=== PATIENT | female | born 1935 | race Caucasian/White ===

== ENCOUNTER → 2017-01-18 | Outpatient (CLI) | payer OTHER ==
[~2017-01-18] MED LIST: ASPEC325 PO; ATEN50TA8 PO; CALCTAB7 PO; CLOP1TAB15 PO; CZR25 PO; RXC5 PO; SIMV20TA2 PO; [UNRECOGNIZED DRUG - OTHER]
[2017-01-18 17:33] LABS: HEMATOCRIT 42.1 % (37-47); MEAN CELL VOLUME 93.6 fL (80-100); MEAN CORPUSCULAR HEMOGLOBIN 30.2 pg (25-34); MEAN CORPUSCULAR HGB CONC 32.3 g/dl (32-36); MEAN PLATELET VOLUME 9.9 fL (7.4-10.4); PLATELET COUNT 300 K/uL (130-400); WHITE BLOOD COUNT 6.21 K/uL (4.8-10.8)
[2017-01-18 20:12] LABS: BLOOD UREA NITROGEN 11 mg/dl (7-18); BUN/CREATININE RATIO 11.9 (10-20); CALCIUM 9.4 mg/dl (8.5-10.1); CARBON DIOXIDE 27 mmol/L (21-32); CHLORIDE 101 mmol/L (98-107); CREATININE 0.96 mg/dl (0.60-1.20); GLUCOSE 88 mg/dl (70-99); POTASSIUM 4.6 mmol/L (3.5-5.1); SODIUM 137 mmol/L (136-145); TRIGLYCERIDES 178 mg/dl (0-150); VERY LOW DENSITY LIPOPROT CALC 36 mg/dl
[2017-01-18 20:24] LABS: ALB/GLOB RATIO 1.1 (0.9-2); ALKALINE PHOSPHATASE 85 U/L (45-117); ALT/SGPT 21 U/L (12-78); AST/SGOT 19 U/L (15-37); CHOLESTEROL 132 mg/dl (0-200); CHOLESTEROL/HDL RATIO 2.4; HDL CHOLESTEROL 56 mg/dl; LDL CHOLESTEROL CALCULATED 40 mg/dl
== END | disposition home or self-care (01) ==
LOC: C.LABBFT 14:38
PROVIDERS: ATTEND Internal Medicine
DX: I10 Essential (primary) hypertension (principal); E78.5 Hyperlipidemia, unspecified

== ENCOUNTER 2017-09-11 16:21 | Emergency (ER) | payer OTHER ==
[2017-09-11] VITALS (12 sets, daily range): BP systolic 174–224; BP diastolic 69–130; PULSE 68–94; TEMP 36.6; O2SAT 92–100; Ht 154.9 cm; Wt 70.3 kg
[~2017-09-11] VITALS: Ht 154.9 cm; Wt 70.3 kg
[2017-09-11] MEDS ORDERED: IBUPROFEN 200 MG TAB PO STA (16:43)
--- NOTE | 2017-09-11 17:42 | DIAGNOSTIC IMAGING REPORT ---
R HUMERUS MIN 2 VIEWS ROUTINE CLINICAL HISTORY: Fall. Right upper arm pain. COMPARISON: None FINDINGS: There is an anterior right shoulder dislocation. There is a possible Hill-Sachs. No additional fractures are identified. IMPRESSION: 1. Anterior right shoulder dislocation with possible Hill-Sachs deformity. 2. No additional fractures. Electronically signed by: Francis Ho M.D. 09/11/2017 5:41 PM Dictated Date/Time: 09/11/2017 5:34 PM
--- NOTE | 2017-09-11 17:44 | DIAGNOSTIC IMAGING REPORT ---
CERVICAL SPINE 5 VIEWS CLINICAL HISTORY: Fall with right-sided neck pain. FINDINGS: AP, crosstable lateral, bilateral oblique, and odontoid views of the cervical spine are obtained. No prior studies are available for comparison at the time of dictation. The skeletal structures are osteopenic. There is no radiographic evidence of fracture or subluxation. Vertebral body height and alignment are maintained throughout the cervical spine. C6 and C7 are only well-visualized on the oblique views, and are not seen on the lateral projections. The odontoid process and lateral masses appear intact on the open-mouth view. The atlantodental articulation appears maintained noting productive degenerative change. The spinolaminar line is preserved. The spinous processes are intact as visualized. Anterior osteophytes are seen throughout. Advanced disc space narrowing is seen at C4-C5 and C5-C6. C6-C7 is not well assessed. Moderate disc space narrowing seen at C3-C4. Posterior disc osteophyte complexes at several levels likely contribute to multilevel acquired compromise of the central canal. Multilevel foraminal stenosis is observed on the oblique views. The prevertebral soft tissues are normal in appearance. Dense atherosclerotic calcification is seen in the carotid bulbs. Midline sternotomy wires are noted. The partially imaged apical lung parenchyma appears clear. IMPRESSION: 1. There is no radiographic evidence of fracture or subluxation involving the cervical spine. Note that C6 and C7 are suboptimally assessed. 2. Osteopenia and spondylotic change as above. Electronically signed by: Matheus Magana M.D. 09/11/2017 5:43 PM Dictated Date/Time: 09/11/2017 5:35 PM
--- NOTE | 2017-09-11 17:46 | DIAGNOSTIC IMAGING REPORT ---
R RIBS UNILATERAL WITH PA CHEST CLINICAL HISTORY: Right rib pain following fall. COMPARISON STUDY: Chest radiograph September 16, 2014. FINDINGS: Note is made of an anterior right shoulder dislocation. There is an equivocal nondisplaced fracture of the anterolateral right fourth rib. No additional fractures are identified. There are median sternotomy wires and clips from bypass grafting. Moderate cardiomegaly is noted without evidence for edema. Hazy opacity along left heart likely reflects epicardial fat pad or atelectasis. No pneumothorax or pleural effusion is present. IMPRESSION: 1. Anterior right shoulder dislocation. 2. Equivocal nondisplaced fracture of the anterolateral right fourth rib. No pneumothorax. Electronically signed by: Francis Ho M.D. 09/11/2017 5:44 PM Dictated Date/Time: 09/11/2017 5:41 PM
--- NOTE | 2017-09-11 17:48 | EMERGENCY ROOM VISIT NOTE ---
ED Visit Note First contact with patient: 16:30 I have seen and examined this patient with Spencer Aleman and generally agree with the treatment plan as discussed. Procedural Sedation Indication Shoulder dislocation. Total time: 20 minutes. Written consent was obtained after the risks and benefits were explained to the pt and daughter, including, but not limited to aspiration, allergic reaction, breathing difficulties, cardiac complications, vomiting, pain, event recall, bleeding, and/or infection. Pre-sedation examination and paperwork completed. The patient was on 100% oxygen via NRB prior to the procedure. Continous end tidal CO2 monitoring, pulse oximetry, and cardiac monitoring were utilized. Suction, airway equipment, medications, respiratory equipment, and appropriate personnel were prepared prior to the initiation of the procedure. A time out was taken. Sedation was achieved utilizing 35 mg of ketamine and propofol. After I observed the patient had reached the appropriate level of sedation the main procedure was performed without complication. Sedation was discontinued and the monitoring continued. The patient recovered quickly from the effects of the medication without complication or adverse event. Current/Historical Medications Scheduled Aspirin (Aspirin), 325 MG PO DAILY Atenolol (Tenormin), 25 MG PO DAILY Clopidogrel (Plavix), 75 MG PO DAILY Losartan Potassium (Cozaar), 50 MG PO DAILY Simvastatin (Zocor), 20 MG PO HS Scheduled PRN Ibuprofen Tab (Advil), 200 MG PO UD PRN for Pain Naproxen (Aleve), 220 MG PO UD PRN for Pain Allergies Coded Allergies: Sulfa Antibiotics (Verified Allergy, Unknown, unknown, 09/11/17) Vital Signs Date Time Temp Pulse Resp B/P (MAP) Pulse Ox O2 Delivery O2 Flow Rate FiO2 09/11/17 18:40 81 14 224/94 99 Nasal Cannula 4.0 09/11/17 18:35 87 16 201/97 98 Nasal Cannula 4.0 09/11/17 18:30 88 10 221/93 93 Nasal Cannula 8.0 09/11/17 18:29 94 12 219/123 95 Nasal Cannula 8.0 09/11/17 18:26 85 10 213/130 99 Nasal Cannula 4.0 09/11/17 18:24 74 14 100 Nasal Cannula 4.0 09/11/17 18:16 76 16 213/69 97 Room Air 09/11/17 18:14 97 Room Air 09/11/17 18:14 98 Nasal Cannula 4.0 09/11/17 18:10 75 09/11/17 17:34 72 16 199/70 94 Room Air 09/11/17 16:25 36.9 66 18 163/62 96 Room Air Medications Administered Medications (Trade) Dose Ordered Sig/Lolita Route Start Time Stop Time Status Last Admin Dose Admin Ibuprofen (Advil Tab) 400 mg NOW STAT PO 09/11/17 16:43 09/11/17 16:46 DC 09/11/17 16:54 400 MG Ondansetron HCl (Zofran Inj) 4 mg NOW STAT IV 09/11/17 18:07 09/11/17 18:10 DC 09/11/17 18:32 4 MG Sodium Chloride 500 ml @ 999 mls/hr Q31M STAT IV 09/11/17 18:07 09/11/17 18:37 DC 09/11/17 18:20 999 MLS/HR Ketamine HCl (Ketalar Steri-Vial Inj) 35 mg NOW STAT IV 09/11/17 18:07 09/11/17 18:10 DC 09/11/17 18:24 35 MG Propofol (Diprivan Iv Emulsion 20ml Vial) 35 mg NOW STAT IV 09/11/17 18:07 09/11/17 18:10 DC 09/11/17 18:25 35 MG Departure Information Referrals Enmanuel Yao M.D. (PCP) Patient Instructions My [facility]
[2017-09-11] MEDS ORDERED: PROPOFOL IV EMULSION 10 MG/ML 20 ML VIAL IV STA (18:07)
[2017-09-11] MEDS ORDERED: KETAMINE HCL INJ 50 MG/ML 10 ML VIAL IV STA (18:07)
[2017-09-11] MEDS ORDERED: SODIUM CHLORIDE 0.9% 500ML 500 ML IV STA (18:07)
[2017-09-11] MEDS ORDERED: ONDANSETRON INJ 2 MG/ML 2 ML VIAL IV STA (18:07)
[2017-09-11] MEDS ORDERED: NALOXONE HCL 0.4 MG/1 ML VIAL/CARP ONE (18:10)
[2017-09-11] MEDS ORDERED: FENTANYL CITRATE INJ 50 MCG/1 ML 2 ML VIAL ONE (18:10)
[2017-09-11] MEDS ORDERED: MIDAZOLAM HCL 5 MG/ML 2ML VIAL ONE (18:11)
[2017-09-11] MEDS ORDERED: FLUMAZENIL 0.1 MG/1 ML 10 ML VIAL IV ONE (18:11)
--- NOTE | 2017-09-11 18:14 | EMERGENCY ROOM VISIT NOTE ---
Post-Moderate Sedation Plan General Date of Moderate Sedation Sep 11, 2017. Vital Signs: Vital Signs Past 12 Hours Date Time Temp Pulse Resp B/P (MAP) Pulse Ox O2 Delivery O2 Flow Rate FiO2 09/11/17 18:10 75 09/11/17 17:34 72 16 199/70 94 Room Air 09/11/17 16:25 36.9 66 18 163/62 96 Room Air Review - Discharge Plan Post Moderate Sedation Plan: On clinical assessment, the patient appears to have tolerated the conscious sedation without complications. Patient is recovering as anticipated. Patient will continue to be monitored by nursing and may be discharged when conscious sedation discharge criteria are met.
--- NOTE | 2017-09-11 18:14 | EMERGENCY ROOM VISIT NOTE ---
Pre-Mod Sedation Assessment General Date of Moderate Sedation: Sep 11, 2017. Vital Signs: Vital Signs Past 12 Hours Date Time Temp Pulse Resp B/P (MAP) Pulse Ox O2 Delivery O2 Flow Rate FiO2 09/11/17 18:10 75 09/11/17 17:34 72 16 199/70 94 Room Air 09/11/17 16:25 36.9 66 18 163/62 96 Room Air Review Cardiovascular: regular rate, rhythm, no edema, no gallop, no JVD, no murmur, normal peripheral pulses Abdomen: normal bowel sounds, non tender, soft, no organomegaly, no pulsatile mass, normal rectal exam, occult blood negative Lungs: chest non-tender, lungs clear, normal breath sounds, no respiratory distress, no accessory muscle use Airway Class: I Pre-Sedation Airway Assessment Smoking Status: Never Smoker Mallampati Classification: Class I (Sft palate,uvula,fauces,pillar) ASA Classification: Class II Procedure Planning Contraindications-for Mod Sed: None Yes Notes The planned sedation has been discussed with the patient and consent obtained. I have identified the patient, determined the appropriateness of sedation and have assessed the patient immediately prior to the procedure. All medicine(s) and interventions are by my order.
[2017-09-11] MEDS ORDERED: NAPR1TAB9 PO (18:27)
[2017-09-11] MEDS ORDERED: ASPI325T45 PO (18:27)
[2017-09-11] MEDS ORDERED: LOSA50TA54 PO (18:27)
[2017-09-11] MEDS ORDERED: IBUP-103 PO (18:27)
--- NOTE | 2017-09-11 19:10 | DIAGNOSTIC IMAGING REPORT ---
RIGHT SHOULDER 2 VIEWS CLINICAL HISTORY: Postreduction examination. FINDINGS: 2 portable views of the right shoulder are correlated with humeral radiographs performed earlier the same day 09/11/2017. The skeletal structures are osteopenic. There has been successful reduction of the dislocated right shoulder with gnosticist of near-anatomic alignment at the glenohumeral articulation. No fracture is clearly identified. Productive degenerative change is noted at the acromioclavicular joint. Mild calcific tendinopathy is suggested. The overlying soft tissues are within normal limits. Midline sternotomy wires are noted. There is right basilar atelectasis. IMPRESSION: 1. There has been successful reduction of the dislocated right shoulder with gnosticist of near-anatomic alignment. 2. No definite fracture is seen. Electronically signed by: Matheus Magana M.D. 09/11/2017 7:08 PM Dictated Date/Time: 09/11/2017 7:07 PM
[2017-09-11] MEDS ORDERED: OXYCODONE IR HOME PACK PO ONE (19:45)
--- NOTE | 2017-09-11 20:16 | EMERGENCY ROOM VISIT NOTE ---
History First contact with patient: 16:30 Chief Complaint: FALL Stated Complaint: FALL; R ARM PAIN History of Present Illness The patient is a 82 year old female who presents to the Emergency Room with complaints of injuries after sustaining a fall 6 days ago. The patient reports that she was walking through her sister's yard when she got her foot caught in a vine. She lost her balance and fell onto her right side. She reports bruising of the right breast, ribs and right upper arm. She reports persistent right upper arm and shoulder pain, along with mild right posterior shoulder/ neck pain. She denies hitting her head or having any persistent headache, and had no loss of consciousness. She denies any worsening pain with deep breathing. The patient reports that she did have a bloody nose as well but currently has no difficulty breathing. The patient believes that her tetanus immunization is up-to-date. The patient did not seek further medical evaluation as she has various home remedies that work for her ailments. The patient takes Advil as needed for pain, and currently rates her discomfort a 5 out of 10. The patient is [id number]. 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, [place] Or Graft (3) CVA (4) Hyperlipidemia, Unspecified (5) Hypertension Nos (6) Hypothyroidism Nos (7) Malignant Hypertension (8) Osteoporosis Nos Surgical Problems: (1) Aortocoronary Bypass Family History Unremarkable Social History Smoking Status: Never Smoker Alcohol Use: none Drug Use: none Marital Status: Housing Status: lives alone Occupation Status: retired Current/Historical Medications Scheduled Aspirin (Aspirin), 325 MG PO DAILY Atenolol (Tenormin), 25 MG PO DAILY Clopidogrel (Plavix), 75 MG PO DAILY Losartan Potassium (Cozaar), 50 MG PO DAILY Simvastatin (Zocor), 20 MG PO HS Scheduled PRN Ibuprofen Tab (Advil), 200 MG PO UD PRN for Pain Naproxen (Aleve), 220 MG PO UD PRN for Pain Physical Exam Vital Signs Date Time Temp Pulse Resp B/P (MAP) Pulse Ox O2 Delivery O2 Flow Rate FiO2 09/11/17 19:43 68 18 200/75 93 Room Air 09/11/17 19:32 36.6 68 14 218/79 93 Room Air 09/11/17 19:20 09/11/17 19:16 36.6 71 13 203/75 93 Room Air 72 09/11/17 19:00 79 12 209/98 92 Room Air 77 09/11/17 18:45 80 12 220/98 93 Room Air 09/11/17 18:40 81 14 224/94 99 Nasal Cannula 4.0 09/11/17 18:35 87 16 201/97 98 Nasal Cannula 4.0 09/11/17 18:30 88 10 221/93 93 Nasal Cannula 8.0 09/11/17 18:29 94 12 219/123 95 Nasal Cannula 8.0 09/11/17 18:26 85 10 213/130 99 Nasal Cannula 4.0 09/11/17 18:24 74 14 100 Nasal Cannula 4.0 09/11/17 18:16 76 16 213/69 97 Room Air 09/11/17 18:14 97 Room Air 09/11/17 18:14 98 Nasal Cannula 4.0 09/11/17 18:10 75 09/11/17 17:34 72 16 199/70 94 Room Air 09/11/17 16:25 36.9 66 18 163/62 96 Room Air Physical Exam CONSTITUTIONAL: Healthy and well nourished. Alert and oriented X 3 with positive affect. Patient does not appear in any acute distress. GCS 15. HEENT: Normocephalic, atraumatic. Pupils equal, round and reactive. Patient has a small abrasion to the nose without any septal deviation or hematoma. No facial ecchymosis or tenderness to palpation. No hemotympanum, raccoon's eyes or Leone sign. NECK: The patient has mild right cervical paraspinous and trapezius tenderness to palpation. RESPIRATORY: Clear to auscultation bilaterally with no wheezing, crackles, rhonchi or stridor. CARDIOVASCULAR: Regular rate and rhythm with no murmurs, rubs or gallops. GASTROINTESTINAL: Bowel sounds present in all quadrants. Soft and nontender to palpation. MUSCULOSKELETAL: Examination shows generalized tenderness to palpation of the right upper arm, with notable posterior and posterior medial ecchymosis. Gentle internal and external rotation worsens her discomfort. She has mild tenderness over the distal clavicle and right lateral ribs with ecchymosis noted. No focal tenderness through the rib heads, thoracolumbar spine or costochondral joints. INTEGUMENTARY: No rash or other significant dermatologic conditions noted. NEUROLOGIC: No focal neurologic deficits noted. Medical Decision & Procedures ER Provider Diagnostic Interpretation: My interpretation of cervical spine x-rays does not show any acute fractures or subluxations. Radiologist report is as follows: CERVICAL SPINE 5 VIEWS CLINICAL HISTORY: Fall with right-sided neck pain. FINDINGS: AP, crosstable lateral, bilateral oblique, and odontoid views of the cervical spine are obtained. No prior studies are available for comparison at the time of dictation. The skeletal structures are osteopenic. There is no radiographic evidence of fracture or subluxation. Vertebral body height and alignment are maintained throughout the cervical spine. C6 and C7 are only well-visualized on the oblique views, and are not seen on the lateral projections. The odontoid process and lateral masses appear intact on the open-mouth view. The atlantodental articulation appears maintained noting productive degenerative change. The spinolaminar line is preserved. The spinous processes are intact as visualized. Anterior osteophytes are seen throughout. Advanced disc space narrowing is seen at C4-C5 and C5-C6. C6-C7 is not well assessed. Moderate disc space narrowing seen at C3-C4. Posterior disc osteophyte complexes at several levels likely contribute to multilevel acquired compromise of the central canal. Multilevel foraminal stenosis is observed on the oblique views. The prevertebral soft tissues are normal in appearance. Dense atherosclerotic calcification is seen in the carotid bulbs. Midline sternotomy wires are noted. The partially imaged apical lung parenchyma appears clear. IMPRESSION: 1. There is no radiographic evidence of fracture or subluxation involving the cervical spine. Note that C6 and C7 are suboptimally assessed. 2. Osteopenia and spondylotic change as above. My interpretation of right ribs x-rays with a PA chest view shows a possible nondisplaced fourth rib fracture. No pneumothorax noted. Radiologist report is as follows: R RIBS UNILATERAL WITH PA CHEST CLINICAL HISTORY: Right rib pain following fall. COMPARISON STUDY: Chest radiograph September 16, 2014. FINDINGS: Note is made of an anterior right shoulder dislocation. There is an equivocal nondisplaced fracture of the anterolateral right fourth rib. No additional fractures are identified. There are median sternotomy wires and clips from bypass grafting. Moderate cardiomegaly is noted without evidence for edema. Hazy opacity along left heart likely reflects epicardial fat pad or atelectasis. No pneumothorax or pleural effusion is present. IMPRESSION: 1. Anterior right shoulder dislocation. 2. Equivocal nondisplaced fracture of the anterolateral right fourth rib. No pneumothorax. My interpretation of right humerus x-rays shows an anterior dislocation without other fractures. Radiologist report is as follows: R HUMERUS MIN 2 VIEWS ROUTINE CLINICAL HISTORY: Fall. Right upper arm pain. COMPARISON: None FINDINGS: There is an anterior right shoulder dislocation. There is a possible Hill-Sachs. No additional fractures are identified. IMPRESSION: 1. Anterior right shoulder dislocation with possible Hill-Sachs deformity. 2. No additional fractures. Post reduction x-rays of the right shoulder shows adequate alignment without evidence for other fractures. Radiologist report is as follows: RIGHT SHOULDER 2 VIEWS CLINICAL HISTORY: Postreduction examination. FINDINGS: 2 portable views of the right shoulder are correlated with humeral radiographs performed earlier the same day 09/11/2017. The skeletal structures are osteopenic. There has been successful reduction of the dislocated right shoulder with jain of near-anatomic alignment at the glenohumeral articulation. No fracture is clearly identified. Productive degenerative change is noted at the acromioclavicular joint. Mild calcific tendinopathy is suggested. The overlying soft tissues are within normal limits. Midline sternotomy wires are noted. There is right basilar atelectasis. IMPRESSION: 1. There has been successful reduction of the dislocated right shoulder with jain of near-anatomic alignment. 2. No definite fracture is seen. Medications Administered Medications (Trade) Dose Ordered Sig/Lolita Route Start Time Stop Time Status Last Admin Dose Admin Ibuprofen (Advil Tab) 400 mg NOW STAT PO 09/11/17 16:43 09/11/17 16:46 DC 09/11/17 16:54 400 MG Ondansetron HCl (Zofran Inj) 4 mg NOW STAT IV 09/11/17 18:07 09/11/17 18:10 DC 09/11/17 18:32 4 MG Sodium Chloride 500 ml @ 999 mls/hr Q31M STAT IV 09/11/17 18:07 09/11/17 18:37 DC 09/11/17 18:20 999 MLS/HR Ketamine HCl (Ketalar Steri-Vial Inj) 35 mg NOW STAT IV 09/11/17 18:07 09/11/17 18:10 DC 09/11/17 18:24 35 MG Propofol (Diprivan Iv Emulsion 20ml Vial) 35 mg NOW STAT IV 09/11/17 18:07 09/11/17 18:10 DC 09/11/17 18:25 35 MG Oxycodone HCl (Roxicodone Immediate Rel 5MG Home Pack) 1 homepack UD ONCE PO 09/11/17 19:45 09/11/17 19:46 DC 09/11/17 19:50 1 HOMEPACK ED Course Patient history and physical exam were performed. Nurse's notes were reviewed. Vital signs were reviewed and were normal. The patient requested Advil 400 mg for pain, and this was dispensed. X-rays of the cervical spine did not show any acute cervical spine fractures or subluxations. X-rays of the right ribs with a PA chest review is suggestive of a nondisplaced right fourth anterolateral rib fracture that is nondisplaced. No pneumothorax was noted. X- rays of the right humerus confirms an anterior dislocation of the shoulder. The case was further discussed with Dr. Martinez, ED attending physician, who examined the patient and recommended attempted reduction. There is reduction procedures were attempted by myself and Dr. Martinez without successful reduction. We elected conscious sedation, which was performed by Dr. Martinez. Please see his dictation for further details. Reduction was performed by myself with post reduction x-ray showing good alignment. It is noted that the patient did suffer a 4 cm skin tear on the left posterior wrist during the reduction procedure. The wound was cleansed and Dermabond was applied. Postreduction x-rays of the right shoulder were normal. A shoulder immobilizer was applied. The patient recovered from sedation without any complications. The patient was encouraged to intermittently apply ice to the shoulder. She may alternate ibuprofen and Tylenol for baseline pain relief. The patient was provided a home pack without prescription for OxyIR 5 mg as she was complaining of discomfort at the time of discharge, and wanted something at home in case she needed it. The patient will follow-up with Dr. Kirkpatrick, orthopedic surgeon for further reevaluation and management. The patient and daughter voiced understanding of all discharge instructions, and the patient rated her discomfort a 3 out of 10 at the time of discharge. It is noted that the patient's blood pressure was consistently elevated while in the emergency department. The patient does have a history of malignant hypertension, and was encouraged to follow-up with her PCP for blood pressure recheck. Medical Decision [place] Drug Monitoring Program Search Results: patient reviewed within database, no issues identified Medication Reconcilliation Current Medication List: was personally reviewed by ma Blood Pressure Screening Patient's blood pressure: Elevated blood pressure Blood pressure disposition: Referred to PCP Impression Primary Impression: Dislocation of shoulder, anterior, right, closed Additional Impressions: Right rib fracture Laceration of wrist, right Fall from slip, trip, or stumble Elevated blood pressure reading Departure Information Referrals Enmanuel Yao M.D. (PCP) Patient Instructions My [facility] Problem Qualifiers Primary Impression: Dislocation of shoulder, anterior, right, closed Encounter type: initial encounter Qualified Codes: S43.014A - Anterior dislocation of right humerus, initial encounter Additional Impressions: Right rib fracture Encounter type: initial encounter Rib fracture type: single rib Fracture type: closed Qualified Codes: S22.31XA - Fracture of one rib, right side, initial encounter for closed fracture Laceration of wrist, right Encounter type: initial encounter Qualified Codes: S61.511A - Laceration without foreign body of right wrist, initial encounter Fall from slip, trip, or stumble Encounter type: initial encounter Qualified Codes: W01.0XXA - Fall on same level from slipping, tripping and stumbling without subsequent striking against object, initial encounter
== END 2017-09-11 20:00 | disposition home or self-care (01) ==
LOC: C.EDB 16:22
DX: S43.014A Anterior dislocation of right humerus, initial encounter (principal); S22.31XA Fracture of one rib, right side, initial encounter for closed fracture; S61.511A Laceration without foreign body of right wrist, initial encounter; R03.0 Elevated blood-pressure reading, without diagnosis of hypertension; W01.0XXA Fall on same level from slipping, tripping and stumbling without subsequent striking against object, initial encounter; Y92.096 Garden or yard of other non-institutional residence as the place of occurrence of the external cause; I25.10 Atherosclerotic heart disease of native coronary artery without angina pectoris; Z86.73 Personal history of transient ischemic attack (TIA), and cerebral infarction without residual deficits; E78.5 Hyperlipidemia, unspecified; I10 Essential (primary) hypertension; E03.9 Hypothyroidism, unspecified; M81.0 Age-related osteoporosis without current pathological fracture; Z95.1 Presence of aortocoronary bypass graft; Z79.82 Long term (current) use of aspirin; Z79.02 Long term (current) use of antithrombotics/antiplatelets; Z79.899 Other long term (current) drug therapy

== ENCOUNTER 2021-10-15 18:19 | Observation (INO) ==
[2021-10-15 19:06] LABS: Hematocrit (blood only) 40.4 % (37-47); Hemoglobin 13.9 g/dL (12.0-16.0); Lymphocytes # (auto) 0.62 K/uL (1.2-3.4); Lymphocytes % (auto) 16.5 %; Mean Corpuscular Hemoglobin 30.7 pg (25-34); Mean Corpuscular Hgb Conc 34.4 g/dL (32-36); Mean Corpuscular Volume 89.2 fL (80-100); Mean Platelet Volume 9.9 fL (7.4-10.4); Monocytes # (auto) 0.35 K/uL (0.11-0.59); Monocytes % (auto) 9.3 %; Neutrophils # (auto) 2.79 K/uL (1.4-6.5); Neutrophils % (auto) 74.2 %; Platelet Count 173 K/uL (130-400); RDW Coefficient of Variation 12.7 % (11.5-14.5); RDW Standard Deviation 41.3 fL (36.4-46.3); Red Blood Count 4.53 M/uL (4.2-5.4); White Blood Count 3.76 K/uL (4.8-10.8)
[2021-10-15 19:29] LABS: Alanine Aminotransferase 12 U/L (7-52); Albumin Globulin Ratio 1.1 (0.9-2); Albumin Level 3.6 gm/dl (3.4-5.0); Alkaline Phosphatase 54 U/L (34-104); Anion Gap 9 (3-11); Aspartate Aminotransferase 22 U/L (13-39); BUN Creatinine Ratio 15.1 (10-20); Blood Urea Nitrogen 13 mg/dl (6-23); Calcium 8.5 mg/dl (8.5-10.1); Carbon Dioxide 26 mmol/L (21-32); Chloride 94 mmol/L (98-107); Est GFR (African American) 69.9 ml/min; Est GFR (Non-African American) 60.3 ml/min; Globulin 3.2 gm/dl (2.5-4.0); Glucose 144 mg/dl (70-99); Potassium 2.6 mmol/L (3.5-5.1); Sodium 129 mmol/L (136-145); Total Protein 6.8 gm/dl (6.0-8.3)
[2021-10-15] MEDS ORDERED: POTASSIUM CHLORIDE / WTR 10 MEQ/100 ML PLCT IV ONE (20:02)
[2021-10-15] MEDS ORDERED: ONDANSETRON INJ 2 MG/ML 2 ML VIAL IV STA (20:02)
[2021-10-15] MEDS ORDERED: SODIUM CHLORIDE 0.9% 1000ML 1,000 ML IV ONE ×2 (20:02→21:19)
--- NOTE | 2021-10-15 20:27 | Emergency Department Note ---
Impression & Plan Acute hyponatremia, Hypokalemia, Acute dehydration, Diarrhea, COVID-19 ED Provider Note NAME: DENZEL WOODS AGE: 86 SEX: F : 1935 ARRIVES VIA: Walk-In INFORMANT: [Patient][family] ED PROVIDER(S): [Matheus Palomino MD] CHIEF COMPLAINT: Dehydration HISTORY OF PRESENT ILLNESS: The patient is an 86-year-old female who last week, had a bit of a scratchy throat/sore throat. Things seem to get better but then, 5days ago, she vomited. She has had no appetite since although, no recurrent vomiting. No abdominal pain, no chest pain. Patient began having diarrhea about 2 days ago and now is very weak and washed out. Her family believes that she is dehydrated. The patient is not vaccinated for COVID-19 or influenza. She has had some sick contacts recently. As per the nursing staff, the patient was too weak to stand on her own, she had to be placed in a wheelchair. Typically, the patient takes care of herself and lives on her own. REVIEW OF SYSTEMS: See HPI for pertinent positives and negatives. A total of ten systems were reviewed and were otherwise negative. PMHx/PSHx: See Below SOCIAL HISTORY: See Below. PHYSICAL EXAM: GENERAL: Patient is in no acute distress. HEENT: No acute trauma, normocephalic atraumatic, mucous membranes dry, no nasal congestion, no scleral icterus. NECK: No stridor, no adenopathy, no meningismus, trachea is midline. LUNGS: Clear to auscultation bilaterally, no wheeze, no rhonchi, breath sounds equal. HEART: Without murmurs gallops or rubs, regular rate and rhythm. ABDOMEN: Soft, nontender, bowel sounds positive, no hernias, no peritonitis. EXTREMITIES: No cyanosis or edema, full range of motion of all the joints without pain or difficulty, no signs for acute trauma. NEUROLOGIC: Sleepy, a bit somnolent,, no acute motor or sensory deficits, no focal weakness. SKIN: No rash, no jaundice, no diaphoresis. DIFFERENTIAL DIAGNOSIS: Infection, dehydration, UTI, COVID-19, metabolic abnormality, hypo/hyperglycemia, electrolyte disturbance, anemia, hypoxia, cardiac sources, i ntracerebral event, toxicologic issues, stroke, TIA, as well as other pathologies. EMERGENCY DEPARTMENT COURSE/PROCEDURES: ECG: Indication was weakness. The ECG shows a normal sinus rhythm with a rate of 62. There are some inverted T waves in the anterior and a few lateral leads. 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 There is no ST elevatio n, no PVCs. Compared to previous ECG from 21 August 2018, the T wave changes are more pronounced, criteria for a old anterolateral infarct are now present. Continuous Cardiac Monitoring: An order was placed for continuous cardiac monitoring. The monitor shows a rate of 60 with normal sinus rhythm. MEDICAL DECISION MAKING: There is a lower white blood cell count, likely consistent with a viral illness. There is a normal hemoglobin and platelet count. Sodium and potassium were both low. No renal failure. No concerning liver enzyme elevation. Urinalysis does not show infection. COVID testing is positive. Influenza and RSV testing is negative. Chest film does not show pneumonia or CHF. Abdominal and pelvis CT does not show any acute surgical process, no colitis or diverticulitis. A viral pneumonia was suspected based on the CT imaging. ECG shows a normal sinus rhythm, there are some ST and T wave changes however, no ST elevation to suggest AR. The patient was given IV saline, 2 L. She was given IV potassium and IV Zofran. The patient presents with diarrhea, weakness, fatigue. She is dehydrated. She has a low sodium and low potassium. She is COVID-19 positive. The patient requires a hospital stay. I spoke to the patient and family, I spoke with case management. The on-call hospitalist was consulted. 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) Stroke Unstable angina Family History (Updated 07/03/19 @ 13:08 by Enmanuel Yao III, MD) Sister Dementia Social History Smoking Status: Never smoker Second Hand Exposure: No; Hx Alcohol Use: No Hx Substance Use: No Preferred Language: Chinese Communication Ability: Effective Rehabilitator Required: No Beliefs That Will Affect Care: None Current Living Situation: Alone Feels Safe at Home: Yes Assistive Devices: Denture - Upper, Denture - Lower and Glasses Allergies Allergies Allergy/AdvReac Type Severity Reaction Status Date / Time acetazolamide Allergy Unknown Unknown Verified 10/15/21 22:03 oxycodone Allergy Unknown PATIENT Verified 10/15/21 21:59 REFUSES ANY OPIOIDS Sulfa (Sulfonamide Allergy Unknown unknown Verified 10/15/21 21:59 Antibiotics) TAVO Inhibitors AdvReac Unknown Unknown Verified 10/15/21 22:03 atorvastatin [From Lipitor] AdvReac Unknown Unknown Verified 10/15/21 22:03 Home Meds Home Medications Medication Instructions Recorded Confirmed aspirin 81 mg tablet,delayed 81 mg PO DAILY 10/15/21 10/15/21 release Previous Rx's Medication Instructions Recorded clopidogrel 75 mg tablet 75 mg PO DAILY #90 tab 03/16/21 furosemide 20 mg tablet 20 mg PO DAILY #90 tab 03/16/21 losartan 25 mg tablet 25 mg PO DAILY #30 tab 07/15/21 atenolol 25 mg tablet 25 mg PO DAILY #90 tab 07/26/21 simvastatin 20 mg tablet 20 mg PO DAILY #90 tab 07/26/21 Results & Data (ED) Vital Signs Vital Signs - 24 hr 10/15/21 18:34 10/15/21 20:17 10/15/21 20:30 Temperature 36.5 C Temperature Source Oral Pulse Rate 60 52 L 54 L Pulse Rate from SpO2 Sensor 53 L 54 L Pulse Rhythm Regular Pulse Strength Normal Respiratory Rate 20 13 21 Respiratory Effort / Characteristics Non-Labored Spontaneous Respiratory Depth Normal Respiratory Pattern Regular Blood Pressure 127/62 129/77 Blood Pressure Mean 83 94 Blood Pressure Position Sitting Pulse Oximetry 95 94 96 Oxygen Delivery Method Room Air Room Air Room Air Sepsis Recent Fever Within 48 Hours No Sepsis New/Unexplained Change in Mental Status No Sepsis Action Taken by Nursing No Action Required 10/15/21 20:31 10/15/21 21:00 10/15/21 21:30 Temperature Temperature Source Pulse Rate 60 58 L 59 L Pulse Rate from SpO2 Sensor 55 L 58 L 59 L Pulse Rhythm Pulse Strength Respiratory Rate 23 17 19 Respiratory Effort / Characteristics Respiratory Depth Respiratory Pattern Blood Pressure 162/43 H 169/55 H 173/61 H Blood Pressure Mean 82 93 98 Blood Pressure Position Pulse Oximetry 95 93 94 Oxygen Delivery Method Room Air Room Air Room Air Sepsis Recent Fever Within 48 Hours Sepsis New/Unexplained Change in Mental Status Sepsis Action Taken by Nursing 10/15/21 22:00 10/15/21 22:04 10/15/21 22:30 Temperature Temperature Source Pulse Rate 59 L 60 65 Pulse Rate from SpO2 Sensor Pulse Rhythm Pulse Strength Respiratory Rate 15 22 19 Respiratory Effort / Characteristics Respiratory Depth Respiratory Pattern Blood Pressure 172/69 H 169/69 H Blood Pressure Mean 103 102 Blood Pressure Position Pulse Oximetry 95 Oxygen Delivery Method Room Air Sepsis Recent Fever Within 48 Hours Sepsis New/Unexplained Change in Mental Status Sepsis Action Taken by Skilled Nursing Medications Current Medication List: was personally reviewed by me Laboratory Data Attestation: I reviewed the patient's lab results. Result diagrams: 10/15/21 18:58 10/15/21 18:58 Lab Results 10/15/21 10/15/21 10/15/21 Range/Units 18:58 18:58 18:58 WBC 3.76 L (4.8-10.8) K/uL RBC 4.53 (4.2-5.4) M/uL Hgb 13.9 (12.0-16.0) g/dL Hct 40.4 (37-47) % MCV 89.2 (80-100) fL MCH 30.7 (25-34) pg MCHC 34.4 (32-36) g/dL RDW Std Deviation 41.3 (36.4-46.3) fL RDW Coeff of Hector 12.7 (11.5-14.5) % Plt Count 173 (130-400) K/uL MPV 9.9 (7.4-10.4) fL Immature Gran % (Auto) 0.0 % Neut % (Auto) 74.2 % Lymph % (Auto) 16.5 % Dukes % (Auto) 9.3 % Eos % (Auto) 0.0 % Baso % (Auto) 0.0 % Neut # (Auto) 2.79 (1.4-6.5) K/uL Lymph # (Auto) 0.62 L (1.2-3.4) K/uL Dukes # (Auto) 0.35 (0.11-0.59) K/uL Eos # (Auto) 0.00 (0-0.5) K/uL Baso # (Auto) 0.00 (0-0.2) K/uL Immature Gran # (Auto) 0.00 (0.00-0.02) K/uL Sodium 129 L (136-145) mmol/L Potassium 2.6 L (3.5-5.1) mmol/L Chloride 94 L (98-107) mmol/L Carbon Dioxide 26 (21-32) mmol/L Anion Gap 9 (3-11) BUN 13 (6-23) mg/dl Creatinine 0.86 (0.6-1.2) mg/dl Est Cr Clr Drug Dosing Not Reportable Est GFR ( Amer) 69.9 ml/min Est GFR (Non-Af Amer) 60.3 ml/min BUN/Creatinine Ratio 15.1 (10-20) Glucose 144 H (70-99) mg/dl Calcium 8.5 (8.5-10.1) mg/dl Magnesium 1.9 (1.7-2.4) mg/dl Total Bilirubin 1.0 (0.2-1.0) mg/dl AST 22 (13-39) U/L ALT 12 (7-52) U/L Alkaline Phosphatase 54 (34-104) U/L Total Protein 6.8 (6.0-8.3) gm/dl Albumin 3.6 (3.4-5.0) gm/dl Globulin 3.2 (2.5-4.0) gm/dl Albumin/Globulin Ratio 1.1 (0.9-2) Urine Color Urine Appearance (Clear) Urine pH (4.5-7.5) Ur Specific [place] (1.000-1.030) Urine Protein (Negative) Urine Glucose (UA) (Negative) Urine Ketones (Negative) Urine Blood (Negative) Urine Nitrite (Negative) Urine Bilirubin (Negative) Urine Urobilinogen (Negative) Ur Leukocyte Esterase (Negative) Urine WBC (Auto) (0-5) /hpf Urine RBC (Auto) (0-4) /hpf U Hyaline Cast (Auto) (0-5) /lpf U Epithel Cells (Auto) (0-5) /lpf Urine Bacteria (Auto) (Negative) SARS-CoV-2 (PCR) (Negative) Influenza Type A (PCR) (Neg) Influenza Type B (PCR) (Neg) RSV (RT-PCR) (Neg) 10/15/21 10/15/21 Range/Units 20:25 20:39 WBC (4.8-10.8) K/uL RBC (4.2-5.4) M/uL Hgb (12.0-16.0) g/dL Hct (37-47) % MCV (80-100) fL MCH (25-34) pg MCHC (32-36) g/dL RDW Std Deviation (36.4-46.3) fL RDW Coeff of Hector (11.5-14.5) % Plt Count (130-400) K/uL MPV (7.4-10.4) fL Immature Gran % (Auto) % Neut % (Auto) % Lymph % (Auto) % Dukes % (Auto) % Eos % (Auto) % Baso % (Auto) % Neut # (Auto) (1.4-6.5) K/uL Lymph # (Auto) (1.2-3.4) K/uL Dukes # (Auto) (0.11-0.59) K/uL Eos # (Auto) (0-0.5) K/uL Baso # (Auto) (0-0.2) K/uL Immature Gran # (Auto) (0.00-0.02) K/uL Sodium (136-145) mmol/L Potassium (3.5-5.1) mmol/L Chloride (98-107) mmol/L Carbon Dioxide (21-32) mmol/L Anion Gap (3-11) BUN (6-23) mg/dl Creatinine (0.6-1.2) mg/dl Est Cr Clr Drug Dosing Est GFR ( Amer) ml/min Est GFR (Non-Af Amer) ml/min BUN/Creatinine Ratio (10-20) Glucose (70-99) mg/dl Calcium (8.5-10.1) mg/dl Magnesium (1.7-2.4) mg/dl Total Bilirubin (0.2-1.0) mg/dl AST (13-39) U/L ALT (7-52) U/L Alkaline Phosphatase (34-104) U/L Total Protein (6.0-8.3) gm/dl Albumin (3.4-5.0) gm/dl Globulin (2.5-4.0) gm/dl Albumin/Globulin Ratio (0.9-2) Urine Color Dark Yellow Urine Appearance Clear (Clear) Urine pH 6.0 (4.5-7.5) Ur Specific [place] 1.015 (1.000-1.030) Urine Protein Trace H (Negative) Urine Glucose (UA) Negative (Negative) Urine Ketones Trace H (Negative) Urine Blood Negative (Negative) Urine Nitrite Negative (Negative) Urine Bilirubin Negative (Negative) Urine Urobilinogen Positive H (Negative) Ur Leukocyte Esterase Negative (Negative) Urine WBC (Auto) 1-5 (0-5) /hpf Urine RBC (Auto) 0-4 (0-4) /hpf U Hyaline Cast (Auto) 1-5 (0-5) /lpf U Epithel Cells (Auto) 10-20 H (0-5) /lpf Urine Bacteria (Auto) Negative (Negative) SARS-CoV-2 (PCR) POSITIVE A* (Negative) Influenza Type A (PCR) Negative (Neg) Influenza Type B (PCR) Negative (Neg) RSV (RT-PCR) Negative (Neg) Administered Medications Discontinued Medications Sodium Chloride (Nss 1000ml) 1,000 mls @ 999 mls/hr IV .Q1H1M ONE Stop: 10/15/21 21:02 Last Infusion: 10/15/21 21:50 Dose: 0 mls/hr Documented by: [id number] Admin: 10/15/21 20:31 Dose: 999 mls/hr Documented by: [id number] Potassium Chloride (K Ramon / Wtr) 10 meq in 100 mls @ 100 mls/hr IV ONE ONE; Protocol Stop: 10/15/21 21:01 Last Infusion: 10/15/21 21:40 Dose: 0 mls/hr Documented by: [id number] Admin: 10/15/21 20:31 Dose: 100 mls/hr Documented by: [id number] Sodium Chloride (Nss 1000ml) 1,000 mls @ 999 mls/hr IV .Q1H1M ONE Stop: 10/15/21 22:19 Last Admin: 10/15/21 22:30 Dose: 999 mls/hr Documented by: [id number] Ondansetron HCl (Ondansetron Inj 2 Mg/Ml 2 Ml Vial) 4 mg IV NOW STA Stop: 10/15/21 20:03 Last Admin: 10/15/21 20:31 Dose: 4 mg Documented by: [id number] Potassium Chloride (Potassium Chloride Crtab 20 Meq Tabcr) 40 meq PO NOW STA Stop: 10/15/21 22:01 Last Admin: 10/15/21 22:50 Dose: 40 meq Documented by: [id number] Imaging Data Radiologist's Impression: Chest X-Ray 10/15/21 20:03 XR chest 1V portable CLINICAL HISTORY: weakness. Evaluate cardiopulmonary status COMPARISON STUDY: 08/29/2018 TECHNIQUE: 1 view of the chest FINDINGS: Single frontal view of the chest demonstrates the heart size to be at the upper limits of normal to mildly enlarged status post previous cardiothoracic surgery. The lungs are clear of alveolar opacities. There is no evidence for pleural effusion. There is no evidence for vascular congestion. There is no acute osseous pathology. IMPRESSION: No acute cardiopulmonary disease. ACT 112: Negative or not required by law. Electronically signed by: Kailash Brown M.D. 10/15/2021 8:47 PM Abdomen/Pelvis CT 10/15/21 20:56 CT abd pelvis wo con CLINICAL HISTORY: Diarrhea. Possible dehydration. COMPARISON STUDY: Portable chest from 10/15/2021 CT DOSE: 363.03 mGy.cm TECHNIQUE: Standard CT of the Abdomen and Pelvis was performed without IV contrast. The patient did not receive oral contrast. A dose lowering technique was utilized adhering to the principles of ALARA. FINDINGS: Lung base: Not seen radiographically are patchy groundglass opacities throughout both lungs characteristic of a viral type pneumonitis and probable early Covid 19 pneumonia. There is mild cardiomegaly and coronary artery calcification present. Abdominal cavity: There is no evidence for abdominal mass, adenopathy or ascites. Liver: The liver is homogeneous in attenuation on these limited noncontrast images.. Spleen: The spleen is homogeneous in attenuation on these limited noncontrast images. Pancreas: The pancreas is homogeneous in attenuation on these limited noncontrast images. Gall Bladder: The gallbladder is well distended with no evidence for cho lelithiasis, wall thickening or pericholecystic edema.. Adrenal glands: The adrenal glands are normal in size and attenuation on these limited noncontrast images. Kidneys: The kidneys are homogeneous in attenuation on these limited noncontrast images. There is no evidence for gross renal mass, calculus or hydronephrosis bilaterally. Bowel: The bowel loops are normally placed within the abdomen and pelvis without evidence for dilatation or obstruction. No significant fluid levels are seen within the colon. There is formed fecal material in the rectum. There are no inflammatory changes present. There is no evidence for free air. The appendix is not visualized. Bladder: There is distention urinary bladder with no evidence for focal bladder wall thickening, calculus or diverticulum. : There is no evidence for pelvic mass or adenopathy. Vasculature: There is no evidence for focal aneurysmal dilatation of the abdominal aorta. Extensive atherosclerotic calcification is present. Osseous structures: There is no acute osseous pathology. Degenerative changes are seen within the spine along with right total hip replacement. IMPRESSION: 1. Bowel gas pattern within normal limits with no significant fluid levels or CT findings suggestive of diarrhea. 2. Not seen radiographically a patchy interstitial and alveolar opacities within both lung bases characteristic of a viral type pneumonitis and probable early Covid pneumonia. 3. No other evidence for acute intra-abdominal or pelvic abnormality on these limited noncontrast images. 4. Additional nonacute findings are delineated above. ACT 112: Negative or not required by law. Electronically signed by: Kailash Brown M.D. 10/15/2021 9:53 PM Discharge Plan Visit Data Chief Complaint: Dehydration Stated Complaint: FLU LIKE SYMPTOMS, DEHYDRATION ED Provider: Matheus Palomino Discharge Problem: Acute hyponatremia, Hypokalemia, Acute dehydration, Diarrhea, COVID-19 Patient Disposition: Admitted As Inpatient Condition: Fair Forms Stand Alone Forms: My [facility] C-sam Prescriptions Prescriptions: No Action clopidogrel 75 mg tablet 75 mg PO DAILY Qty: 90 RF: 3 furosemide 20 mg tablet 20 mg PO DAILY Qty: 90 RF: 3 losartan 25 mg tablet 25 mg PO DAILY Qty: 30 RF: 5 atenolol 25 mg tablet 25 mg PO DAILY Qty: 90 RF: 1 simvastatin 20 mg tablet 20 mg PO DAILY Qty: 90 RF: 3 aspirin 81 mg Tablet,Delayed Release (Dr/Ec) 81 mg PO DAILY RF: 0 Referrals Referrals: Enmanuel Yao III, MD [Physician] -
[2021-10-15 20:40] LABS: Appearance Urine Clear (Clear); Bacteria Urine Automated Negative (Negative); Bilirubin Urine Negative (Negative); Blood Urine Negative (Negative); Color Urine Dark Yellow; Glucose Urine UA Negative (Negative); Ketones Urine Trace (Negative); Leukocyte Esterase Urine Negative (Negative); Nitrite Urine Negative (Negative); Protein Urine Trace (Negative); RBC Urine Automated 0-4 /hpf (0-4); Specific Gravity Urine 1.015 (1.000-1.030); Urobilinogen Urine Positive (Negative)
--- NOTE | 2021-10-15 20:48 | XRay Report ---
XR chest 1V portable CLINICAL HISTORY: weakness. Evaluate cardiopulmonary status COMPARISON STUDY: 08/29/2018 TECHNIQUE: 1 view of the chest FINDINGS: Single frontal view of the chest demonstrates the heart size to be at the upper limits of normal to m ildly enlarged status post previous cardiothoracic surgery. The lungs are clear of alveolar opacities . There is no evidence for pleural effusion. There is no evidence for vascular congestion. There is n o acute osseous pathology. IMPRESSION: No acute cardiopulmonary disease. ACT 112: Negative or not required by law. Electronically signed by: Kailash Brown M.D. 10/15/2021 8:47 PM
[2021-10-15 21:27] LABS: Influenza A virus by PCR Negative (Neg); Influenza B virus by PCR Negative (Neg); RSV by PCR Negative (Neg)
[2021-10-15 21:33] LABS: SARS CoV2 RNA(COVID-19) InHosp POSITIVE (Negative)
--- NOTE | 2021-10-15 21:55 | CT Scan Report ---
CT abd pelvis wo con CLINICAL HISTORY: Diarrhea. Possible dehydration. COMPARISON STUDY: Portable chest from 10/15/2021 CT DOSE: 363.03 mGy.cm TECHNIQUE: Standard CT of the Abdomen and Pelvis was performed without IV contrast. The patient did not receive oral contrast. A dose lowering technique was utilized adhering to the principles of GRACE Galindo. FINDINGS: Lung base: Not seen radiographically are patchy groundglass opacities throughout both lungs characte ristic of a viral type pneumonitis and probable early Covid 19 pneumonia. There is mild cardiomegaly and coronary artery calcification present. Abdominal cavity: There is no evidence for abdominal mass, adenopathy or ascites. Liver: The liver is homogeneous in attenuation on these limited noncontrast images.. Spleen: The spleen is homogeneous in attenuation on these limited noncontrast images. Pancreas: The pancreas is homogeneous in attenuation on these limited noncontrast images. Gall Bladder: The gallbladder is well distended with no evidence for cholelithiasis, wall thickening or pericholecystic edema.. Adrenal glands: The adrenal glands are normal in size and attenuation on these limited noncontrast im ages. Kidneys: The kidneys are homogeneous in attenuation on these limited noncontrast images. There is no evidence for gross renal mass, calculus or hydronephrosis bilaterally. Bowel: The bowel loops are normally placed within the abdomen and pelvis without evidence for dilatat ion or obstruction. No significant fluid levels are seen within the colon. There is formed fecal mate rial in the rectum. There are no inflammatory changes present. There is no evidence for free air. The appendix is not visualized. Bladder: There is distention urinary bladder with no evidence for focal bladder wall thickening, calc ulus or diverticulum. : There is no evidence for pelvic mass or adenopathy. Vasculature: There is no evidence for focal aneurysmal dilatation of the abdominal aorta. Extensive a therosclerotic calcification is present. Osseous structures: There is no acute osseous pathology. Degenerative changes are seen within the spi ne along with right total hip replacement. IMPRESSION: 1. Bowel gas pattern within normal limits with no significant fluid levels or CT findings suggestive of diarrhea. 2. Not seen radiographically a patchy interstitial and alveolar opacities within both lung bases luann acteristic of a viral type pneumonitis and probable early Covid pneumonia. 3. No other evidence for acute intra-abdominal or pelvic abnormality on these limited noncontrast samuel ges. 4. Additional nonacute findings are delineated above. ACT 112: Negative or not required by law. Electronically signed by: Kailash Brown M.D. 10/15/2021 9:53 PM
[2021-10-15] MEDS ORDERED: POTASSIUM CHLORIDE CRTAB 20 MEQ TABCR PO STA (22:00)
--- NOTE | 2021-10-15 22:46 | History & Physical Report ---
Date of Service October 15, 2021 Assessment & Plan (1) COVID-19: Plan: 86yo female with Covid-19 infection, no hypoxia. Unvaccinated against Covid-19 -Isolation precaution -No indication for supplemental O2 or steroid therapy at this time -Monitor (2) Hypertension: Plan: Elevated BP in ER. Patient is uncertain when she last took her medications -Continue Losartan 25mg po daily -Continue Atenolol 25mg po daily -Hydralazine 10mg po qid PRN BP >180/110 -Monitor (3) Hypercholesteremia: Plan: Chronic -Continue Simvastatin (4) Stroke: Plan: Remote history of TIA in setting of carotid artery stenosis -COntinue ASA, Plavix and Zocor Plan: Patient has not seen her PCP or had routine bloodwork since 2018 - she has refused to come to the office because she will not wear a mask F/E/N - Heplock. Electrolytes WNL. Ppx -Lovenox PPx Code- Conditional, no intubation or mechanical ventilation in the event of respiratory failure Dispo - Admit to medical History of Present Illness Chief Complaint: right rib pain Primary Care Provider: Sienna Ho MD Gena Walker is an 86yo female presenting with Covid. Patient had a sore throat last week then developed some vomiting, poor appetite and diarrhea. No cough/SOB or chest pain. She is very weak. Unable to ambulate and unable to stand. She has some episodes of confusion, somnolence and fatigue as well. Family members have similar symptoms. Daughter states it is "the flu" Patient is not vaccinated against Covid-19 Allergies Allergy/AdvReac Type Severity Reaction Status Date / Time acetazolamide Allergy Unknown Unknown Verified 10/15/21 22:03 oxycodone Allergy Unknown PATIENT Verified 10/15/21 21:59 REFUSES ANY OPIOIDS Sulfa (Sulfonamide Allergy Unknown unknown Verified 10/15/21 21:59 Antibiotics) TAVO Inhibitors AdvReac Unknown Unknown Verified 10/15/21 22:03 atorvastatin [From Lipitor] AdvReac Unknown Unknown Verified 10/15/21 22:03 Home Medications Medication Instructions Recorded Confirmed Type clopidogrel 75 mg tablet 75 mg PO DAILY #90 tab 03/16/21 10/15/21 Rx furosemide 20 mg tablet 20 mg PO DAILY #90 tab 06/15/21 01/14/22 Rx losartan 25 mg tablet 25 mg PO DAILY #30 tab 07/15/21 10/15/21 Rx atenolol 25 mg tablet 25 mg PO DAILY #90 tab 07/26/21 10/15/21 Rx simvastatin 20 mg tablet 20 mg PO DAILY #90 tab 07/26/21 10/15/21 Rx aspirin 81 mg tablet,delayed 81 mg PO DAILY 10/15/21 10/15/21 History release 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) Stroke Unstable angina Family History Sister Dementia Social History Smoking Status: Never smoker Second Hand Exposure: No; Hx Alcohol Use: No Hx Substance Use: No Preferred Language: Indonesian Communication Ability: Effective [employer]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 Beliefs That Will Affect Care: None Current Living Situation: Alone Other Information That Helps Us Care for You: No Feels Safe at Home: Yes Safety Concerns: Feels Safe At This Time Assistive Devices: Denture - Upper, Denture - Lower, Glasses, Hearing Aid - Bilateral and Walker Review of Systems Review of Systems: All systems reviewed & are unremarkable except as noted in HPI & below Physical Exam Physical Exam: General: patient resting comfortably, NAD, non-toxic in appearance, AA&O x 4 Skin: warm, dry, intact, no rashes or lesions HEENT: NC/AT, PERRL, EOMI, anicteric sclera, conjunctiva without injection, external ear normal to inspection and nontender, nares patent, moist mucus membranes, dentition intact, no oropharyngeal lesions, neck supple, trachea midline, no LAD, no thyromegaly, no JVD Heart: +S1/S2, regular, no m/r/g Lungs: equal air entry bilaterally, no rales/rhonchi/wheezes Abd: +BS, soft, NT/ND, no masses/organomegaly/ascites Ext: warm, 2+ pulses in UE/LE bilaterally, no clubbing/cyanosis, tenderness with calf palpation with trace pitting edema R >L Neuro: nonfocal, patient AA&O x 4, speech intact, no facial droop, moving all extremities on command with equal strength 5/5 Results & Data Results & Data ([facility]) Vital Signs (Past 12 Hours) Vital Signs Temp Pulse Resp BP Pulse Ox 10/15/21 20:30 54 L 21 129/77 96 10/15/21 20:17 52 L 13 94 10/15/21 18:34 36.5 C 60 20 127/62 95 Laboratory Results Laboratory Results WBC 3.76 K/uL (4.8-10.8) L 10/15/21 18:58 RBC 4.53 M/uL (4.2-5.4) 10/15/21 18:58 Hgb 13.9 g/dL (12.0-16.0) 10/15/21 18:58 Hct 40.4 % (37-47) 10/15/21 18:58 MCV 89.2 fL (80-100) 10/15/21 18:58 MCH 30.7 pg (25-34) 10/15/21 18:58 MCHC 34.4 g/dL (32-36) 10/15/21 18:58 RDW Std Deviation 41.3 fL (36.4-46.3) 10/15/21 18:58 RDW Coeff of Hector 12.7 % (11.5-14.5) 10/15/21 18:58 Plt Count 173 K/uL (130-400) 10/15/21 18:58 MPV 9.9 fL (7.4-10.4) 10/15/21 18:58 Immature Gran % (Auto) 0.0 % 10/15/21 18:58 Neut % (Auto) 74.2 % 10/15/21 18:58 Lymph % (Auto) 16.5 % 10/15/21 18:58 Cedar % (Auto) 9.3 % 10/15/21 18:58 Eos % (Auto) 0.0 % 10/15/21 18:58 Baso % (Auto) 0.0 % 10/15/21 18:58 Neut # (Auto) 2.79 K/uL (1.4-6.5) 10/15/21 18:58 Lymph # (Auto) 0.62 K/uL (1.2-3.4) L 10/15/21 18:58 Cedar # (Auto) 0.35 K/uL (0.11-0.59) 10/15/21 18:58 Eos # (Auto) 0.00 K/uL (0-0.5) 10/15/21 18:58 Baso # (Auto) 0.00 K/uL (0-0.2) 10/15/21 18:58 Immature Gran # (Auto) 0.00 K/uL (0.00-0.02) 10/15/21 18:58 Sodium 129 mmol/L (136-145) L 10/15/21 18:58 Potassium 2.6 mmol/L (3.5-5.1) L 10/15/21 18:58 Chloride 94 mmol/L (98-107) L 10/15/21 18:58 Carbon Dioxide 26 mmol/L (21-32) 10/15/21 18:58 Anion Gap 9 (3-11) 10/15/21 18:58 BUN 13 mg/dl (6-23) 10/15/21 18:58 Creatinine 0.86 mg/dl (0.6-1.2) 10/15/21 18:58 Est Cr Clr Drug Dosing Not Reportable 10/15/21 18:58 Est GFR ( Amer) 69.9 ml/min 10/15/21 18:58 Est GFR (Non-Af Amer) 60.3 ml/min 10/15/21 18:58 BUN/Creatinine Ratio 15.1 (10-20) 10/15/21 18:58 Glucose 144 mg/dl (70-99) H 10/15/21 18:58 Calcium 8.5 mg/dl (8.5-10.1) 10/15/21 18:58 Magnesium 1.9 mg/dl (1.7-2.4) 10/15/21 18:58 Total Bilirubin 1.0 mg/dl (0.2-1.0) 10/15/21 18:58 AST 22 U/L (13-39) 10/15/21 18:58 ALT 12 U/L (7-52) 10/15/21 18:58 Alkaline Phosphatase 54 U/L (34-104) 10/15/21 18:58 C-Reactive Protein 1.67 mg/dl (0-5.00) 10/15/21 18:58 Total Protein 6.8 gm/dl (6.0-8.3) 10/15/21 18:58 Albumin 3.6 gm/dl (3.4-5.0) 10/15/21 18:58 Globulin 3.2 gm/dl (2.5-4.0) 10/15/21 18:58 Albumin/Globulin Ratio 1.1 (0.9-2) 10/15/21 18:58 Urine Color Dark Yellow 10/15/21 20:25 Urine Appearance Clear (Clear) 10/15/21 20:25 Urine pH 6.0 (4.5-7.5) 10/15/21 20:25 Ur Specific Sewell 1.015 (1.000-1.030) 10/15/21 20:25 Urine Protein Trace (Negative) H 10/15/21 20:25 Urine Glucose (UA) Negative (Negative) 10/15/21 20:25 Urine Ketones Trace (Negative) H 10/15/21 20:25 Urine Blood Negative (Negative) 10/15/21 20:25 Urine Nitrite Negative (Negative) 10/15/21 20:25 Urine Bilirubin Negative (Negative) 10/15/21 20:25 Urine Urobilinogen Positive (Negative) H 10/15/21 20:25 Ur Leukocyte Esterase Negative (Negative) 10/15/21 20:25 Urine WBC (Auto) 1-5 /hpf (0-5) 10/15/21 20:25 Urine RBC (Auto) 0-4 /hpf (0-4) 10/15/21 20:25 U Hyaline Cast (Auto) 1-5 /lpf (0-5) 10/15/21 20:25 U Epithel Cells (Auto) 10-20 /lpf (0-5) H 10/15/21 20:25 Urine Bacteria (Auto) Negative (Negative) 10/15/21 20:25 SARS-CoV-2 (PCR) POSITIVE (Negative) A* 10/15/21 20:39 Influenza Type A (PCR) Negative (Neg) 10/15/21 20:39 Influenza Type B (PCR) Negative (Neg) 10/15/21 20:39 RSV (RT-PCR) Negative (Neg) 10/15/21 20:39 Impressions Chest X-Ray 10/15/21 20:03 XR chest 1V portable CLINICAL HISTORY: weakness. Evaluate cardiopulmonary status COMPARISON STUDY: 08/29/2018 TECHNIQUE: 1 view of the chest FINDINGS: Single frontal view of the chest demonstrates the heart size to be at the upper limits of normal to mildly enlarged status post previous cardiothoracic surgery. The lungs are clear of alveolar opacities. There is no evidence for pleural effusion. There is no evidence for vascular congestion. There is no acute osseous pathology. IMPRESSION: No acute cardiopulmonary disease. ACT 112: Negative or not required by law. Electronically signed by: Kailash Brown M.D. 10/15/2021 8:47 PM Abdomen/Pelvis CT 10/15/21 20:56 CT abd pelvis wo con CLINICAL HISTORY: Diarrhea. Possible dehydration. COMPARISON STUDY: Portable chest from 10/15/2021 CT DOSE: 363.03 mGy.cm TECHNIQUE: Standard CT of the Abdomen and Pelvis was performed without IV contrast. The patient did not receive oral contrast. A dose lowering technique was utilized adhering to the principles of ALARA. FINDINGS: Lung base: Not seen radiographically are patchy groundglass opacities throughout both lungs characteristic of a viral type pneumonitis and probable early Covid 19 pneumonia. There is mild cardiomegaly and coronary artery calcification present. Abdominal cavity: There is no evidence for abdominal mass, adenopathy or ascites. Liver: The liver is homogeneous in attenuation on these limited noncontrast images.. Spleen: The spleen is homogeneous in attenuation on these limited noncontrast images. Pancreas: The pancreas is homogeneous in attenuation on these limited noncon trast images. Gall Bladder: The gallbladder is well distended with no evidence for cholelithiasis, wall thickening or pericholecystic edema.. Adrenal glands: The adrenal glands are normal in size and attenuation on these limited noncontrast images. Kidneys: The kidneys are homogeneous in attenuation on these limited noncontrast images. There is no evidence for gross renal mass, calculus or hydronephrosis bilaterally. Bowel: The bowel loops are normally placed within the abdomen and pelvis without evidence for dilatation or obstruction. No significant fluid levels are seen within the colon. There is formed fecal material in the rectum. There are no inflammatory changes present. There is no evidence for free air. The appendix is not visualized. Bladder: There is distention urinary bladder with no evidence for focal bladder wall thickening, calculus or diverticulum. : There is no evidence for pelvic mass or adenopathy. Vasculature: There is no evidence for focal aneurysmal dilatation of the abdominal aorta. Extensive atherosclerotic calcification is present. Osseous structures: There is no acute osseous pathology. Degenerative changes are seen within the spine along with right total hip replacement. IMPRESSION: 1. Bowel gas pattern within normal limits with no significant fluid levels or CT findings suggestive of diarrhea. 2. Not seen radiographically a patchy interstitial and alveolar opacities within both lung bases characteristic of a viral type pneumonitis and probable early Covid pneumonia. 3. No other evidence for acute intra-abdominal or pelvic abnormality on these limited noncontrast images. 4. Additional nonacute findings are delineated above. ACT 112: Negative or not required by law. Electronically signed by: Kailash Brown M.D. 10/15/2021 9:53 PM Diagnostic Findings Bilaterl LE dopplers - NEGATIVE for DVT per STAT-rad read ECG Additional Comments: EKG wtih NSR at 62, normal axis and intervals, no acute ischemic changes, unchanged from prior study Code Status & VTE Plan VTE Prophylaxis Plan VTE Prophylaxis will be ordered: Yes PG Care Time/CCT Total # of Minutes Spent Total Time Spent with Patient: Total time spent is greater than 50% in coordination of care (as documented) at patient's floor/unit and/or counseling patient: Coding Level of Care Code 48267 Initial Inpt Care Lvl 3 Diagnoses COVID-19 U07.1 Hypercholesteremia E78.00 Hypertension I10 Stroke I63.9
[2021-10-16] MEDS ORDERED: LACTATED RINGER'S 1,000 ML IV SCH (02:30)
[2021-10-16] MEDS: hydrALAZINE 10 MG TAB PO PRN ×2 (05:39→08:35)
[2021-10-16 06:00] LABS: Basophils # (auto) 0.01 K/uL (0-0.2); Basophils % (auto) 0.3 %; Hemoglobin 12.5 g/dL (12.0-16.0); Lymphocytes # (auto) 0.63 K/uL (1.2-3.4); Lymphocytes % (auto) 20.3 %; Mean Corpuscular Hemoglobin 30.7 pg (25-34); Mean Corpuscular Hgb Conc 33.8 g/dL (32-36); Mean Corpuscular Volume 90.9 fL (80-100); Mean Platelet Volume 10.2 fL (7.4-10.4); Monocytes # (auto) 0.34 K/uL (0.11-0.59); Monocytes % (auto) 10.9 %; Neutrophils # (auto) 2.13 K/uL (1.4-6.5); Neutrophils % (auto) 68.5 %; Platelet Count 162 K/uL (130-400); RDW Coefficient of Variation 12.7 % (11.5-14.5); RDW Standard Deviation 42.9 fL (36.4-46.3); Red Blood Count 4.07 M/uL (4.2-5.4); White Blood Count 3.11 K/uL (4.8-10.8)
[2021-10-16] MEDS ORDERED: ENOXAPARIN INJ 40 MG/0.4 ML SYR SQ SCH (06:00)
[2021-10-16 06:34] LABS: BUN Creatinine Ratio 17.2 (10-20); Creatinine Clr Calc Pharmacy 50.5 ml/min; Est GFR (African American) 92.3 ml/min; Est GFR (Non-African American) 79.7 ml/min; Potassium 3.1 mmol/L (3.5-5.1)
--- NOTE | 2021-10-16 08:03 | Ultrasound Report ---
US venous doppler LE BI CLINICAL HISTORY: calf pain bilaterally COMPARISON: None available at the time of this dictation. TECHNIQUE: Bilateral lower extremity real-time compression venous ultrasound with Color Doppler imagi ng. Utilizing real-time ultrasonic imaging multiple real time high-resolution ultrasonic images with comp ression and noncompression maneuvers of the deep venous system in addition to color doppler imaging w ere performed from the common femoral vein through the proximal calf veins. FINDINGS: Currently there is normal compressibility of the deep venous system from the common femoral vein thro ugh the proximal calf veins. No current evidence of acute thrombosis is identified. Impression: No evidence of deep venous thrombus. ACT 112: Negative or not required by law. Electronically signed by: Kailash Brown M.D. 10/16/2021 8:02 AM
[2021-10-16] MEDS ORDERED: ATENOLOL 25 MG TABLET PO SCH (09:00)
[2021-10-16] MEDS ORDERED: FUROSEMIDE 20 MG TAB PO SCH (09:00)
[2021-10-16] MEDS ORDERED: CLOPIDOGREL BISULFATE 75 MG TAB PO SCH (09:00)
[2021-10-16] MEDS ORDERED: ASPIRIN 81 MG ECTAB PO SCH (09:00)
[2021-10-16] MEDS ORDERED: SIMVASTATIN 20 MG TAB PO SCH (09:00)
[2021-10-16] MEDS ORDERED: LOSARTAN POTASSIUM 25 MG TAB PO SCH (09:00)
--- NOTE | 2021-10-16 09:37 | Electrocardiogram Report ---
Test Reason : Blood Pressure : / mmHG Vent. Rate : 062 BPM Atrial Rate : 062 BPM P-R Int : 178 ms QRS Dur : 084 ms QT Int : 468 ms P-R-T Axes : 023 004 108 degrees QTc Int : 475 ms Poor data quality, interpretation may be adversely affected Normal sinus rhythm Voltage criteria for left ventricular hypertrophy with secondary ST/T changes Abnormal ECG When compared with ECG of 29-AUG-2018 09:46, No significant change was found Confirmed by Alonzo Bailon ([id number]) on 10/16/2021 9:36:48 AM Referred By: REFERRED SELF Confirmed By:Alonzo Bailon
[2021-10-16] MEDS ORDERED: POTASSIUM CHLORIDE CRTAB 20 MEQ TABCR PO STA (10:26)
--- NOTE | 2021-10-16 11:46 | Discharge Summary ---
Date of Service October 16, 2021 Admission HPI Per Admitting Provider Gena Walker is an 86yo female presenting with Covid. Patient had a sore throat last week then developed some vomiting, poor appetite and diarrhea. No cough/SOB or chest pain. She is very weak. Unable to ambulate and unable to stand. She has some episodes of confusion, somnolence and fatigue as well. Family members have similar symptoms. Daughter states it is "the flu" Patient is not vaccinated against Covid-19 Admission Exam Per Admitting Provider General: patient resting comfortably, NAD, non-toxic in appearance, AA&O x 4 Skin: warm, dry, intact, no rashes or lesions HEENT: NC/AT, PERRL, EOMI, anicteric sclera, conjunctiva without injection, external ear normal to inspection and nontender, nares patent, moist mucus membranes, dentition intact, no oropharyngeal lesions, neck supple, trachea midline, no LAD, no thyromegaly, no JVD Heart: +S1/S2, regular, no m/r/g Lungs: equal air entry bilaterally, no rales/rhonchi/wheezes Abd: +BS, soft, NT/ND, no masses/organomegaly/ascites Ext: warm, 2+ pulses in UE/LE bilaterally, no clubbing/cyanosis, tenderness with calf palpation with trace pitting edema R >L Neuro: nonfocal, patient AA&O x 4, speech intact, no facial droop, moving all extremities on command with equal strength 5/5 Principal Diagnosis COVID-19 pneumonia Discharge Exam General: A&Ox3. NAD. Cooperative. HEENT: Atraumatic, normocephalic. Visual acuity and hearing grossly intact. Pulm: Bibasilar crackles without rhonchi/rales. Symmetrical chest rise. No increase work of breathing. No respiratory distress. Cardiac: RRR, -mrg. Radial pulses intact and symmetrical. Abdominal: Nontender, nondistended, soft. BS present. Extremities: Trace bilateral pitting edema, moves all extremities equally, ankle plantarflexion/dorsiflexion 5/5, hip flexion 5/5, horseradish grinder strength 5/5. Extremities warm and dry. Discharge Data Allergies Allergy/AdvReac Type Severity Reaction Status Date / Time acetazolamide Allergy Unknown Unknown Verified 10/15/21 22:03 oxycodone Allergy Unknown PATIENT Verified 10/15/21 21:59 REFUSES ANY OPIOIDS Sulfa (Sulfonamide Allergy Unknown unknown Verified 10/15/21 21:59 Antibiotics) TAVO Inhibitors AdvReac Unknown Unknown Verified 10/15/21 22:03 atorvastatin [From Lipitor] AdvReac Unknown Unknown Verified 10/15/21 22:03 Consultations 10/15/21 21:43 ED Decision to Admit Stat Ordered Studies 10/15/21 20:56 CT abd pelvis wo con Stat 10/15/21 22:45 US venous doppler LE BI Routine Hospital Course (1) COVID-19: Patient is an 86-year-old female who presented with 7-10 days of sore throat, poor appetite, and diarrhea. She denied shortness of breath and chest pain, endorsed weakness on admission. COVID-19 pneumonia Did not require supplemental oxygen Steroids/remdesivir not indicated at admission Was not hypoxic at discharge Extensive counseling provided to family that some patients do worsen between days 8-14 of illness, and while she is clinically well from a COVID perspective at time of discharge she is still at risk and should seek prompt reevaluation for any new or worsening symptoms. Vaccination was recommended, deferred by patient. Patient reports a history of weakness which seems worse in the last few days with poor appetite/intake. Reports this was improved day of discharge. Did discuss/offer physical therapy, patient reported she has 24-hour care with family at home and did not wish to have a physical therapy evaluation or placement. Discussed this with family, they reported they felt comfortable caring for her at home and confirmed that 24-hour care was available. (2) Hypertension: Elevated BP in ER. Patient is uncertain when she last took her medications -Continue Losartan 25mg po daily -Continue Atenolol 25mg po daily -Hydralazine 10mg po qid PRN BP >180/110 -Monitored. Adequate BP control during admission. (3) Hypercholesteremia: Chronic -Continue Simvastatin (4) Stroke: Remote history of TIA in setting of carotid artery stenosis -COntinue ASA, Plavix and Zocor Code- Conditional, no intubation or mechanical ventilation in the event of respiratory failure Total Time Total Time Spent Total Time Spent (In Minutes): Total time spent day of discharge 35 minutes including direct patient care, coordination of care, review of labs and images, documentation. Discharge Plan Discharge Items Patient Disposition: Home - Self-Care Reason For Visit: COVID-19,WEAKNESS Discharge Diagnosis: COVID-19, diarrhea Condition on Discharge: Fair Activity: Per Instructions section Non-emergency contact: Primary Care Provider Call non-emergency contact if: you have any medication questions, your symptoms worsen and you have a fever Follow-up/Referrals: Sienna Ho MD [Primary Care Provider] - Diet: Heart Healthy Addtl Attending Provider Instructions: You were seen in the hospital for sore throat, poor appetite, and diarrhea with weakness and were COVID-19 positive on admission. Potassium was very low, likely due to diarrhea and poor appetite. You were given potassium supplementation, this quickly alexander but was not yet normal at time of discharge and you were given additional potassium supplementation. You did not require any oxygen or steroids for your COVID treatment. You felt improved at day of discharge,, and expressed that you would like to return home. Physical therapy was discussed, you reported that you had 24/7 caregivers at home and did not wish to pursue physical therapy or rehab for weakness being that he had 24-hour caregivers already. This was also discussed with your family who is comfortable with your return home. Your CT scan showed evidence of COVID-pneumonia, other abnormalities in the abdomen/pelvis were not appreciated. You have not been prescribed any additional medications at time of discharge, as you were not hypoxic (requiring supplemental oxygen) steroids are not indicated at this time. Some patients experience severe worsening of their COVID symptoms around day 814 of illness, likely due to an inflammatory response after the initial viral phase. While you were clinically well, not requiring oxygen, and had improvement in your symptoms at time of discharge it is possible for your illness to worsen and require additional reevaluation or treatment. Should any of your symptoms return/worsen especially worsening shortness of breath, please be reevaluated by your primary care physician or the emergency department. A followup appointment is being scheduled for you with Dr. Ho. You should be seen seen within 1-2 weeks. You should receive a call to confirm this appointment. If you do not receive a call within 48 hours to confirm this appointment, or need to change this appointment, please call the provider's office. You should have a repeat BMP (blood work) to recheck your potassium levels within 1 week. If you develop any new or worsening symptoms including fever, chills, sweats, chest pain, chest pressure, difficulty breathing, uncontrolled nausea/vomiting, rash, wheezing, passing out or nearly passing out, bleeding, black/bloody bowel movements, or other new or concerning symptoms please call your primary care physician, or call 911 for re-evaluation in the emergency department if you are very concerned. Pending Studies at Discharge: No Stand-Alone Forms: My [facility], Smoking Cessation Medications and DC Order Prescriptions: Continued clopidogrel 75 mg tablet 75 mg PO DAILY Qty: 90 RF: 3 furosemide 20 mg tablet 20 mg PO DAILY Qty: 90 RF: 3 losartan 25 mg tablet 25 mg PO DAILY Qty: 30 RF: 5 atenolol 25 mg tablet 25 mg PO DAILY Qty: 90 RF: 1 simvastatin 20 mg tablet 20 mg PO DAILY Qty: 90 RF: 3 aspirin 81 mg Tablet,Delayed Release (Dr/Ec) 81 mg PO DAILY RF: 0 Discharge Orders: Discharge Order (Routine); Ordered 10/16/21 Ordered By: Andrez Pierre Admission Data Admit Date/Time: 10/15/21 22:45 Attending Provider: Anderz Pierre Admit Provider: Denise Lewis Primary Care Provider: Sienna Ho Other Providers: Denise Lewis Other Interventions: Discharge Summary Assessment (RN) Last Done: 10/16/21 12:21 Coding Level of Care Code D/C DAY MANAGEMENT >30 MINS Diagnoses COVID-19 U07.1 Hypertension I10 Hypercholesteremia E78.00 Stroke I63.9
[2021-10-16] MEDS ORDERED: POTASSIUM CHLORIDE CRTAB 20 MEQ TABCR PO SCH (14:00)
--- NOTE | 2021-11-01 14:00 | Coding Query ---
A supporting diagnosis is required for the test/procedure performed on this patient in order for us to be reimbursed by the patient's insurance. Please provide a supporting diagnosis for the following test/procedure listed below next to the test name along with your signature. *If there is no additional diagnosis for this patient that would support the following test/procedure please document that below next to the test/procedure. Test(s)/Procedure(s) that require a supporting diagnosis: Patient with tenderness of the right calf on palpation and trace pitting edema of the RLE. Also with Covid-19 diagnosis which creates a pro-coagulable state. Doppler ordered to rule out lower extremity DVT. * [id number] US VENOUS DOPPLER DIAGNOSIS: DATE OF SERVICE: 10/15/21 Provider Signature: Maria Guadalupe Lewis DO Date: ____11/08/21___ Thank you Anthony Hardin [facility] Information Management Once completed, please kindly fax back to [phone] For questions please call [phone] [facility]ENTER[facility]
== END 2021-10-16 14:24 | disposition home or self-care (01) ==
LOC: ED 18:19 → EDINP 22:45 → INTOOBSV 22:45 → SUATTDRO 22:45 → 3E 10-16 02:06